=== PATIENT | male | born 1950 | race Two or more races ===

== ENCOUNTER → 2020-08-22 | Outpatient (CLI) | payer OTHER | END | disposition home or self-care (01) | LOC: OFIC 805 13:30 | PROVIDERS: ATTEND Otolaryngology | DX: G50.1 Atypical facial pain (principal); R09.81 Nasal congestion; C76.0 Malignant neoplasm of head, face and neck ==

== ENCOUNTER → 2023-01-04 | Emergency (ER) | payer OTHER ==
[~2023-01-04] VITALS: Ht 170.2 cm; Wt 59.0 kg
[~2023-01-04] MED LIST: TOPROL XL25 M1 PO
== END | disposition home or self-care (01) ==
LOC: ER 12:30
DX: H60.90 Unspecified otitis externa, unspecified ear (principal)